=== PATIENT | female | born 1970 | race Caucasian/White ===

== ENCOUNTER → 2017-09-06 | Outpatient (CLI) | payer BC ==
--- NOTE | 2017-09-06 18:44 | Diagnostic Imaging Report ---
INDICATION: Routine screening. COMPARISON: Comparison is made with prior exam from 07/13/2016 and 05/27/2015. The current study was also evaluated with a Computer Aided Detection (CAD) system. FINDINGS: Well-defined nodular densities are identified in the right breast, which appear stable, most consistent with tiny cysts. No new mass or malignant appearing microcalcifications are seen. The axillae are unremarkable. IMPRESSION: No mammographic features suspicious for malignancy are identified. ACR BI-RADS Category 2: Benign findings. Result letter will be mailed to the patient. Note: At least 10% of breast cancer is not imaged by mammography. Dictated by: Dictated on workstation # [id number]
== END ==
LOC: RAD 13:00
PROVIDERS: ATTEND Nurse Practitioner
DX: Z12.31 Encounter for screening mammogram for malignant neoplasm of breast (principal)
CPT/HCPCS: 77067

== ENCOUNTER → 2018-12-23 | Outpatient (CLI) | payer BC ==
--- NOTE | 2018-12-23 13:15 | Diagnostic Imaging Report ---
Indication: Routine screening. Comparison is made with prior mammogram from 09/06/2017 and 07/13/2016. 2-D and 3-D bilateral screening mammography was performed with CAD. Scattered fibroglandular densities are identified bilaterally. Circumscribed nodular densities in the right breast appear stable and consistent with a benign etiology. No spiculated mass or malignant-appearing microcalcifications are seen. Axillae are unremarkable. Impression: BI-RADS category 2 No mammographic features suspicious for malignancy are identified. ACR BI-RADS Category 2: Benign findings. Result letter will be mailed to the patient. Note: At least 10% of breast cancer is not imaged by mammography. Dictated by: Dictated on workstation # [id number]
== END ==
LOC: RAD 10:50
PROVIDERS: ATTEND Nurse Practitioner
DX: Z12.31 Encounter for screening mammogram for malignant neoplasm of breast (principal)
CPT/HCPCS: 77067

== ENCOUNTER 2019-10-30 13:44 | Observation (INO) | payer BC ==
[~2019-10-30] VITALS: Ht 165.5 cm; Wt 97.6 kg
[2019-10-30] MEDS ORDERED: PATIENT MAY USE OWN MEDS, ALL PO SCH (14:15)
[2019-10-30] MEDS ORDERED: PANTOPRAZOLE 40 MG (PROTONIX) VIAL IV NR (14:15)
[2019-10-30] MEDS ORDERED: CATHETER FLUSH 10 ML SYR IV PRN (14:45)
[2019-10-30 15:09] VITALS: BP 177/99
[2019-10-30 15:21] VITALS: BP 177/99
--- NOTE | 2019-10-30 15:30 | NUR ---
FAYE GALLO admitted to room 430-1, with an admitting diagnosis of ABDOMINAL PAIN; MARLON on 10/30/[address] ELISE'S OFFICE, accompanied by .FAYE GALLO introduced to surroundings, call light, bed controls, phone, TV, temperature control, lights, meal times, smoking policy, visitor policy, side rail policy, bathrooms and showers. Patient Rights given to patient in the handbook. FAYE GALLO verbalizes understanding that [facility] is not responsible for the loss or damage to any personal effects or valuables that are kept in the patients posession during their hospitalization. The following Patient Care Plans were discussed with the PATIENT: Discharge Planning, PLAN OF CARE,DIET RESTRICTIONS, and PAIN. FAYE GALLO verbalizes understanding of Interdisciplinary Patient Education.
[2019-10-30 15:41] LABS: BASOPHILS % (AUTO) 0 % (0-10); EOSINOPHILS % (AUTO) 0 % (0-10); HEMATOCRIT 37 % (35-52); HEMOGLOBIN 11.6 G/DL (11.5-16.0); LYMPHOCYTES # (AUTO) 1.1 X 10^3 (1.0-4.0); LYMPHOCYTES % (AUTO) 9 % (12-44); MEAN CORPUSCULAR HEMOGLOBIN 22 PG (25-34); MEAN CORPUSCULAR HGB CONC 32 G/DL (32-36); MEAN CORPUSCULAR VOLUME 69 FL (80-99); MEAN PLATELET VOLUME 11.5 FL (7.4-10.4); MONOCYTES # (AUTO) 0.5 X 10^3 (0.0-1.0); MONOCYTES % (AUTO) 4 % (0-12); NEUTROPHILS # (AUTO) 10.4 X 10^3 (1.8-7.8); NEUTROPHILS % (AUTO) 86 % (42-75); PLATELET COUNT 325 10^3/uL (130-400); RED CELL DISTRIBUTION WIDTH 16.5 % (10.0-14.5)
[2019-10-30] MEDS: NS IV 1000 ML 1,000 ML IV SCH (15:53)
[2019-10-30] MEDS: fentaNYL INJECTION 100 MCG/2 ML AMP IV PRN ×4 (15:54→23:24)
[2019-10-30 16:04] LABS: ALANINE AMINOTRANSFERASE 14 U/L (0-55); ALBUMIN 4.3 GM/DL (3.2-4.5); ALKALINE PHOSPHATASE 49 U/L (40-136); AMYLASE 58 U/L (25-125); BILIRUBIN,TOTAL 0.4 MG/DL (0.1-1.0); BUN/CREATININE RATIO 11; CARBON DIOXIDE 21 MMOL/L (21-32); CHLORIDE 102 MMOL/L (98-107); GFR ESTIMATED > 60; GLUCOSE 111 MG/DL (70-105); LIPASE 15 U/L (8-78); POTASSIUM 3.7 MMOL/L (3.6-5.0); SODIUM 135 MMOL/L (135-145); TOTAL PROTEIN 7.6 GM/DL (6.4-8.2)
[2019-10-30 16:14] VITALS: BP 170/114
[2019-10-30 17:00] LABS: HYPOCHROMASIA SLIGHT; LYMPHOCYTES % (MANUAL) 11 %; MICROCYTOSIS SLIGHT; MONOCYTES % (MANUAL) 1 %; NEUTROPHILS % (MANUAL) 88 %
--- NOTE | 2019-10-30 17:22 | Diagnostic Imaging Report ---
PROCEDURE: US gallbladder. TECHNIQUE: Multiple real-time grayscale images were obtained over the right upper quadrant in various projections. INDICATION: Right upper quadrant pain. FINDINGS: The liver is normal. There is cholelithiasis with some sludge in the dependent portion of the gallbladder as well. Wall is not thickened. Common bile duct is obscured by bowel gas but no intrahepatic biliary ductal dilatation is seen. Pancreas is obscured by gas as is the aorta. The IVC is patent. The right kidney is normal. There is no ascites. IMPRESSION: Examination is somewhat limited due to overlying gas. There is cholelithiasis. No acute abnormality is seen. Dictated by: Dictated on workstation # [id number]
[2019-10-30] MEDS ORDERED: AMIT25TA9 PO (17:23)
[2019-10-30] MEDS ORDERED: FAMO40TA6 PO (17:27)
[2019-10-30] MEDS ORDERED: NORG1TAB16 PO (17:27)
[2019-10-30 17:28] VITALS: BP 185/92
[2019-10-30] MEDS ORDERED: HYDR25TA4 PO (17:36)
[2019-10-30] MEDS ORDERED: LOTE5DRO3 OP (17:36)
[2019-10-30] MEDS ORDERED: LEVO100T7 PO (17:36)
[2019-10-30] MEDS ORDERED: FLUT9.9S NS (17:36)
[2019-10-30] MEDS ORDERED: amLODIPine 5 MG (NORVASC) TAB PO NR (17:45)
[2019-10-30] MEDS: SUCRALFATE 1 GM (CARAFATE) TAB PO SCH (18:12)
[2019-10-30] MEDS: ONDANSETRON 4 MG/2 ML (SDV) Z0FRAN IV PRN (18:14)
[2019-10-30] MEDS ORDERED: PATIENT MAY USE OWN MEDS, ALL MC SCH (19:30)
[2019-10-30 20:09] VITALS: BP 169/105
[2019-10-30] MEDS ORDERED: meTOproloL SUCCINATE 50 MG (TOPROL XL) TAB PO NR (20:15)
--- NOTE | 2019-10-30 20:23 | History & Physical ---
History of Present Illness History of Present Illness Reason for visit/HPI This is a 49 year old female who presented to my office with complaint of epigastric pain radiating through to her back. She had associated nausea and vomiting and was pacing in my office due to discomfort. She reports tarry looking stools recently. She has been using more advil recently due to some neck pain. She also states she has had episodes before which she felt may be gallbladder related but they were not as severe and went away quickly. It was decided to admit her for pain control and further evaluation. Date of Admission Oct 30, 2019 at 14:27 Date Seen by a Provider: Oct 30, 2019 Time Seen by a Provider: 13:30 I consulted on this patient on 10/30/19 20:17 Attending Physician Hilary Elise DO Admitting Physician Hilary Elise DO Consult Allergies and Home Medications Allergies Coded Allergies: No Known Drug Allergies (Unverified , 10/30/19) Home Medications Amitriptyline HCl 25 Mg Tablet, 25 MG PO DAILY Prescribed by: RYAN ESCAMILLA on 10/30/19 172 Famotidine 40 Mg Tablet, 40 MG PO DAILY Prescribed by: RYNA ESCAMILLA on 10/30/19 172 Fluticasone Propionate 9.9 Ml [place].susp, 1 SPRAY NS DAILY PRN PRN for ITCHING 1 SPRAY EACH NARE DAILY Prescribed by: RYAN ESCAMILLA on 10/30/19 173 Hydrochlorothiazide 25 Mg Tablet, 25 MG PO DAILY Prescribed by: RYAN ESCAMILLA on 10/30/19 173 Levothyroxine Sodium 100 Mcg Tablet, 100 MCG PO DAILY Prescribed by: RYAN ESCAMILLA on 10/30/19 173 Loteprednol Etabonate 5 Ml Drops.susp, 5 ML OP DAILY Prescribed by: RYAN ESCAMILLA on 10/30/19 173 Norgestrel-Ethinyl Estradiol 1 Each Tablet, 1 EACH PO DAILY Prescribed by: RYAN ESCAMILLA on 10/30/19 172 Patient Home Medication List Home Medication List Reviewed: Yes Past Wehnamr-Ossowr-Viorlx Hx Past Med/Social Hx: Reviewed Nursing Past Med/Soc Hx Patient Social History Marrital Status: Alcohol Use: Occasionally Uses Recreational Drug Use: No Smoking Status: Never a Smoker Physical Abuse Screen: No Sexual Abuse: No Recent Foreign Travel: Yes Contact w/other who traveled: Yes Recent Hopitalizations: No Recent Infectious Disease Expo: No Immunizations Up To Date Pediatric: Yes Seasonal Allergies Seasonal Allergies: Yes Past Medical History History of Blood Disorders: No Adverse Reaction to Blood Olivas: No Family History Arthritis 19 MOTHER Breast 19 MOTHER FH: breast cancer High cholestr 19 MOTHER Hypertension 19 FATHER Verigo 19 MOTHER Review of Systems Constitutional: No no symptoms reported, No see HPI, No chills, No diaphoresis, No dizziness, No fever, No malaise, No weakness, No weight gain, No weight loss, No other EENTM: No see HPI, No no symptoms reported, No ear discharge, No hearing loss, No ear pain, No blurred vision, No double vision, No eye pain, No tearing, No vision loss, No dental problems, No hoarseness, No mouth pain, No mouth swelling, No epistaxis, No nose congestion, No nose pain, No throat pain, No throat swelling, No other Respiratory: No no symptoms reported, No see HPI, No cough, No dyspnea on exertion, No hemoptysis, No orthopnea, No phlegm, No short of breath, No stridor, No wheezing, No other Cardiovascular: No no symptoms reported, No see HPI, No chest pain, No edema, No Hx of Intervention, No palpitations, No syncope, No vascular heart diseas, No other Gastrointestinal: abdominal pain, loss of appetite, melena, nausea, vomiting Genitourinary: No no symptoms reported, No see HPI, No decreased output, No discharge, No dysuria, No frequency, No hematuria, No hesitancy, No i ncontinence, No nocturia, No pain, No other Musculoskeletal: back pain, neck pain Skin: No no symptoms reported, No see HPI, No change in color, No change in hair/nails, No dryness, No hx of skin cancer, No lesions, No lumps, No pruritus, No rash, No other Psychiatric/Neurological: Denies No Symptoms Reported, Denies See HPI, Denies Anxiety, Denies Depressed, Denies Emotional Problems, Denies Headache, Denies Numbness, Denies Paresthesia, Denies Pre-Existing Deficit, Denies Seizure, Denies Tingling, Denies Tremors, Denies Weakness, Denies Other Physical Exam Vital Signs Vital Signs - First Documented 10/30/19 15:09 Temp 37.0 Pulse 89 Resp 18 B/P (MAP) 177/99 (125) Pulse Ox 97 O2 Delivery Room Air Capillary Refill : Less Than 3 Seconds Height, Weight, BMI Height: '" Weight: lbs. oz. kg; 35.63 BMI Method: General Appearance: Moderate Distress (due to pain) HEENT: Normal ENT Inspection Neck: Supple Respiratory: Lungs Clear Cardiovascular: Regular Rate, Rhythm Gastrointestinal: Normal Bowel Sounds, Soft, Tenderness (epigastric and RUQ) Rectal: Deferred Back: No CVA Tenderness Extremity: Non Tender, No Calf Tenderness, No Pedal Edema Neurologic/Psychiatric: Alert, Oriented x3 Skin: Warm/Dry Comments Laboratory Tests 10/30/19 15:34: White Blood Count 12.0H, Red Blood Count 5.32, Hemoglobin 11.6, Hematocrit 37, Mean Corpuscular Volume 69L, Mean Corpuscular Hemoglobin 22L, Mean Corpuscular Hemoglobin Concent 32, Red Cell Distribution Width 16.5H, Platelet Count 325, Mean Platelet Volume 11.5H, Neutrophils (%) (Auto) 86H, Lymphocytes (%) (Auto) 9L, Monocytes (%) (Auto) 4, Eosinophils (%) (Auto) 0, Basophils (%) (Auto) 0, Neutrophils # (Auto) 10.4H, Lymphocytes # (Auto) 1.1, Monocytes # (Auto) 0.5, Eosinophils # (Auto) 0.0, Basophils # (Auto) 0.0, Neutrophils % (Manual) 88, Lymphocytes % (Manual) 11, Monocytes % (Manual) 1, Hypochromasia SLIGHT, Microcytosis SLIGHT, Sodium Level 135, Potassium Level 3.7, Chloride Level 102, Carbon Dioxide Level 21, Anion Gap 12, Blood Urea Nitrogen 9, Creatinine 0.80, Estimat Glomerular Filtration Rate > 60, BUN/Creatinine Ratio 11, Glucose Level 111H, Calcium Level 9.0, Corrected Calcium 8.8, Total Bilirubin 0.4, Aspartate Amino Transf (AST/SGOT) 18, Alanine Aminotransferase (ALT/SGPT) 14, Alkaline Phosphatase 49, Total Protein 7.6, Albumin 4.3, Amylase Level 58, Lipase 15 Assessment/Plan Assessment and Plan 1. Epigastric Pain/RUQ Pain--Admit and check lab including CMP, amylase, lipase, check GB US, cover with IV protonix 2. Possible melena--check hemoccult, possible ulcer with presentation and recent increased use of NSAIDs, will consult surgery for possible EGD 3. Hypertension--amlodopine given on admit Admission Diagnosis Admission Status: Observation Clinical Quality Measures DVT/VTE Risk/Contraindication: Risk Factor Score Per Nursin RFS Level Per Nursing on Admit: 2=Moderate HILARY ELISE DO Oct 30, 2019 20:23
[2019-10-30] MEDS: AMITRIPTYLINE 25 MG (ELAVIL) TAB PO SCH (20:28)
[2019-10-30] MEDS: PANTOPRAZOLE 40 MG (PROTONIX) VIAL IV SCH (21:23)
[2019-10-30 23:52] VITALS: BP 185/100
[2019-10-31] VITALS (8 sets, daily range): BP systolic 122–168; BP diastolic 60–97
[2019-10-31] MEDS: NS IV 1000 ML 1,000 ML IV SCH ×3 (00:42→22:04)
[2019-10-31] MEDS: fentaNYL INJECTION 100 MCG/2 ML AMP IV PRN ×9 (01:30→22:05)
[2019-10-31] MEDS ORDERED: cloNIDine 0.1 MG (CATAPRES) TAB PO ONE (02:45)
[2019-10-31] MEDS: ONDANSETRON 4 MG/2 ML (SDV) Z0FRAN IV PRN ×4 (04:01→22:04)
[2019-10-31 04:30] LABS: BASOPHILS % (AUTO) 0 % (0-10); EOSINOPHILS # (AUTO) 0.1 10^3/uL (0.0-0.3); EOSINOPHILS % (AUTO) 1 % (0-10); HEMATOCRIT 35 % (35-52); HEMOGLOBIN 11.1 G/DL (11.5-16.0); LYMPHOCYTES # (AUTO) 1.5 X 10^3 (1.0-4.0); LYMPHOCYTES % (AUTO) 14 % (12-44); MEAN CORPUSCULAR HEMOGLOBIN 22 PG (25-34); MEAN CORPUSCULAR HGB CONC 32 G/DL (32-36); MEAN CORPUSCULAR VOLUME 69 FL (80-99); MEAN PLATELET VOLUME 11.7 FL (7.4-10.4); MONOCYTES % (AUTO) 9 % (0-12); NEUTROPHILS # (AUTO) 8.2 X 10^3 (1.8-7.8); NEUTROPHILS % (AUTO) 76 % (42-75); PLATELET COUNT 325 10^3/uL (130-400); RED CELL DISTRIBUTION WIDTH 16.6 % (10.0-14.5); WHITE BLOOD COUNT 10.8 10^3/uL (4.3-11.0)
--- NOTE | 2019-10-31 05:00 | NUR ---
2006 - Notified Dr. Lieberman that pt blood pressure was 169/105mmhg. Received orders for Metoprolol ER 50mg PO once and monitor. 2351 - Pt blood pressure was 185/100mmhg. Pt was also in severe pain and was pacing in the room. Informed pt that RN just gave her Fentanyl 30 mins prior. 013 - Pt was complaining of pain, gave Fentanyl per prn order. 199 - Rechecked blood pressure = 178/105mmhg 204 - Left voicemail for Dr. Lieberman about pt blood pressure 227 - Called Dr. Lieberman again, received order for Clonidine 0.1mg PO once and monitor 0435 - Pt blood pressure = 145/85mmhg.
[2019-10-31] MEDS: LEVOTHYROXINE 100 MCG (LEVOTHROID) TAB PO SCH (06:36)
[2019-10-31] MEDS: SUCRALFATE 1 GM (CARAFATE) TAB PO SCH ×3 (06:37→20:53)
[2019-10-31] MEDS: PANTOPRAZOLE 40 MG (PROTONIX) VIAL IV SCH ×2 (08:04→20:53)
--- NOTE | 2019-10-31 08:47 | Consultation - Surgery ---
History of Present Illness History of Present Illness Patient Consulted On(gladys/time) 10/31/19 08:47 Date Seen by Provider: Oct 31, 2019 Time Seen by Provider: 08:47 History of Present Illness Consult requested by Dr. Lieberman for epigastric abdominal pain and cholelithiasis Patient is a 49 year old female who was woken up from sleep about 1:30 am yesterday morning. Having sharp pain in epigastric region and pain into the back. Patient states that she is also having nausea and vomiting. Trying to eat or drink anything would come up making it worse. Patient states nothing really making it better. Has had episodes in the past of GERD, but has usually been under control with Pepcid. She has had recent tarry black stools. She had episodes previously that she thought was her gallbladder, but was only lasting less than an hr. She had a ultrasound of gallbladder demonstrating cholelithiasis without gallbladder wall thickening. Allergies and Home Medications Allergies Coded Allergies: No Known Drug Allergies (Unverified , 10/30/19) Home Medications Amitriptyline HCl 25 Mg Tablet, 25 MG PO DAILY Prescribed by: RYAN ESCAMILLA on 10/30/19 172 Famotidine 40 Mg Tablet, 40 MG PO DAILY Prescribed by: RYAN ESCAMILLA on 10/30/19 172 Fluticasone Propionate 9.9 Ml [place].susp, 1 SPRAY NS DAILY PRN PRN for ITCHING 1 SPRAY EACH NARE DAILY Prescribed by: RYAN ESCAMILLA on 10/30/19 173 Hydrochlorothiazide 25 Mg Tablet, 25 MG PO DAILY Prescribed by: RYAN ESCAMILLA on 10/30/19 173 Levothyroxine Sodium 100 Mcg Tablet, 100 MCG PO DAILY Prescribed by: RYAN ESCAMILLA on 10/30/19 173 Loteprednol Etabonate 5 Ml Drops.susp, 5 ML OP DAILY Prescribed by: RYAN ESCAMILLA on 10/30/19 173 Norgestrel-Ethinyl Estradiol 1 Each Tablet, 1 EACH PO DAILY Prescribed by: RYAN ESCAMILLA on 10/30/19 172 Patient Home Medication List Home Medication List Reviewed: Yes Past Hyzjjoq-Dgiukz-Wbbqih Hx Patient Social History Alcohol Use: Occasionally Uses Recreational Drug Use: No Smoking Status: Never a Smoker Recent Foreign Travel: Yes Contact w/Someone Who Travel: Yes Recent Infectious Disease Expo: No Recent Hopitalizations: No Physical Abuse Screen: No Sexual Abuse: No Immunizations Up To Date PED Vaccines UTD: Yes Seasonal Allergies Seasonal Allergies: Yes Surgeries History of Surgeries: No Respiratory History of Respiratory Disorde: No Cardiovascular History of Cardiac Disorders: No Neurological History of Neurological Disord: No Genitourinary History of Genitourinary Disor: No Gastrointestinal History of Gastrointestinal Di: No Musculoskeletal History of Musculoskeletal Dis: No Endocrine History of Endocrine Disorders: Yes Cancer History of Cancer: No Psychosocial History of Psychiatric Problem: No Integumentary History of Skin or Integumenta: Yes Blood Transfusions History of Blood Disorders: No Adverse Reaction to a Blood Tr: No Reviewed Nursing Assessment Reviewed/Agree w Nursing PMH: Yes Family Medical History Significant Family History: No Pertinent Family Hx Family Medial History: Arthritis 19 MOTHER Breast 19 MOTHER FH: breast cancer High cholestr 19 MOTHER Hypertension 19 FATHER Verigo 19 MOTHER Review of Systems-General Constitutional: No chills, No diaphoresis EENTM: no symptoms reported Respiratory: no symptoms reported; No cough, No dyspnea on exertion Cardiovascular: no symptoms reported; No chest pain Gastrointestinal: see HPI, abdominal pain, nausea, vomiting Musculoskeletal: back pain Skin: No change in color, No change in hair/nails Psychiatric/Neurological: Denies Anxiety, Denies Depressed, Denies Emotional Problems Physical Exam-General Problems Physical Exam Vital Signs Vital Signs - First Documented 10/30/19 15:09 Temp 37.0 Pulse 89 Resp 18 B/P (MAP) 177/99 (125) Pulse Ox 97 O2 Delivery Room Air Capillary Refill : Less Than 3 SecondsLess Than 3 Seconds General Appearance: no apparent distress HEENT: PERRL/EOMI Neck: non-tender, full range of motion, supple, normal inspection Respiratory: chest non-tender, no respiratory distress, no accessory muscle use Cardiovascular: regular rate, rhythm Gastrointestinal: soft, tenderness (epigastric) Rectal: deferred Back: no CVA tenderness Extremities: normal range of motion, non-tender, normal inspection Neurologic/Psychiatric: wide load escort II-XII nml as tested, no motor/sensory deficits, alert, normal mood/affect, oriented x 3 Skin: normal color, warm/dry Lymphatic: no adenopathy Data Review Labs Laboratory Tests 10/30/19 15:34: White Blood Count 12.0H, Red Blood Count 5.32, Hemoglobin 11.6, Hematocrit 37, Mean Corpuscular Volume 69L, Mean Corpuscular Hemoglobin 22L, Mean Corpuscular Hemoglobin Concent 32, Red Cell Distribution Width 16.5H, Platelet Count 325, Mean Platelet Volume 11.5H, Neutrophils (%) (Auto) 86H, Lymphocytes (%) (Auto) 9L, Monocytes (%) (Auto) 4, Eosinophils (%) (Auto) 0, Basophils (%) (Auto) 0, Neutrophils # (Auto) 10.4H, Lymphocytes # (Auto) 1.1, Monocytes # (Auto) 0.5, Eosinophils # (Auto) 0.0, Basophils # (Auto) 0.0, Neutrophils % (Manual) 88, Lymphocytes % (Manual) 11, Monocytes % (Manual) 1, Hypochromasia SLIGHT, Microcytosis SLIGHT, Sodium Level 135, Potassium Level 3.7, Chloride Level 102, Carbon Dioxide Level 21, Anion Gap 12, Blood Urea Nitrogen 9, Creatinine 0.80, Estimat Glomerular Filtration Rate > 60, BUN/Creatinine Ratio 11, Glucose Level 111H, Calcium Level 9.0, Corrected Calcium 8.8, Total Bilirubin 0.4, Aspartate Amino Transf (AST/SGOT) 18, Alanine Aminotransferase (ALT/SGPT) 14, Alkaline Phosphatase 49, Total Protein 7.6, Albumin 4.3, Amylase Level 58, Lipase 15 10/31/19 04:20: White Blood Count 10.8, Red Blood Count 5.09, Hemoglobin 11.1L, Hematocrit 35, Mean Corpuscular Volume 69L, Mean Corpuscular Hemoglobin 22L, Mean Corpuscular Hemoglobin Concent 32, Red Cell Distribution Width 16.6H, Platelet Count 325, Mean Platelet Volume 11.7H, Neutrophils (%) (Auto) 76H, Lymphocytes (%) (Auto) 14, Monocytes (%) (Auto) 9, Eosinophils (%) (Auto) 1, Basophils (%) (Auto) 0, Neutrophils # (Auto) 8.2H, Lymphocytes # (Auto) 1.5, Monocytes # (Auto) 1.0, Eosinophils # (Auto) 0.1, Basophils # (Auto) 0.0 Assessment/Plan Assessment/Plan Assessment/Plan Epigastric abdominal pain Cholelithiasis Tarry stools Nausea and vomiting Patient was discussed risks and benefits of EGD all indicated procedures and wishes to proceed. Patient with cholelithiasis no evidence of cholecystitis, if feel gallbladder is symptomatic would try to postpone due to COVID-19 pandemic, if unable to wait due to symptoms being too bad would discuss risks and benefits and proceed with lap josias in near future. Clinical Quality Measures DVT/VTE Risk/Contraindication: Risk Factor Score Per Nursin RFS Level Per Nursing on Admit: 2=Moderate DAVIDA ARRIOLA DO Oct 31, 2019 08:47
[2019-10-31] MEDS ORDERED: NORGESTREL ETHINYL ESTRADIOL PO SCH (09:00)
[2019-10-31] MEDS ORDERED: AMITRIPTYLINE 25 MG (ELAVIL) TAB PO SCH (09:00)
--- NOTE | 2019-10-31 11:46 | Progress Note ---
Subjective Date Seen by a Provider: Oct 31, 2019 Time Seen by a Provider: 11:20 Subjective/Events-last exam Fwup epigastric pain, HTN. Still having epigastric pain requiring fentanyl every 2hrs. Objective Exam Vital Signs Date Time Temp Pulse Resp B/P (MAP) Pulse Ox O2 Delivery O2 Flow Rate FiO2 10/31/19 08:00 37.1 73 20 168/97 (120) 99 Room Air 10/31/19 08:00 97 Room Air 10/31/19 04:35 36.8 76 18 145/85 (105) 97 Room Air 10/30/19 23:52 37.3 76 18 185/100 (128) 97 Room Air 10/30/19 20:09 37.3 84 20 169/105 (126) 97 Room Air 10/30/19 20:00 Room Air 10/30/19 17:28 185/92 (123) 10/30/19 16:14 36.8 78 18 170/114 (132) 98 Room Air 10/30/19 15:21 37.0 89 18 177/99 97 Room Air 10/30/19 15:09 37.0 89 18 177/99 (125) 97 Room Air Capillary Refill : Less Than 3 SecondsLess Than 3 Seconds General Appearance: Mild Distress Respiratory: Lungs Clear Cardiovascular: Regular Rate, Rhythm Gastrointestinal: normal bowel sounds, soft, tenderness (epigastric) Neurologic/Psychiatric: Alert, Oriented x3 Results Lab Laboratory Tests 10/30/19 15:34: White Blood Count 12.0H, Red Blood Count 5.32, Hemoglobin 11.6, Hematocrit 37, Mean Corpuscular Volume 69L, Mean Corpuscular Hemoglobin 22L, Mean Corpuscular Hemoglobin Concent 32, Red Cell Distribution Width 16.5H, Platelet Count 325, Mean Platelet Volume 11.5H, Neutrophils (%) (Auto) 86H, Lymphocytes (%) (Auto) 9L, Monocytes (%) (Auto) 4, Eosinophils (%) (Auto) 0, Basophils (%) (Auto) 0, Neutrophils # (Auto) 10.4H, Lymphocytes # (Auto) 1.1, Monocytes # (Auto) 0.5, Eosinophils # (Auto) 0.0, Basophils # (Auto) 0.0, Neutrophils % (Manual) 88, Lymphocytes % (Manual) 11, Monocytes % (Manual) 1, Hypochromasia SLIGHT, Microcytosis SLIGHT, Sodium Level 135, Potassium Level 3.7, Chloride Level 102, Carbon Dioxide Level 21, Anion Gap 12, Blood Urea Nitrogen 9, Creatinine 0.80, Estimat Glomerular Filtration Rate > 60, BUN/Creatinine Ratio 11, Glucose Level 111H, Calcium Level 9.0, Corrected Calcium 8.8, Total Bilirubin 0.4, Aspartate Amino Transf (AST/SGOT) 18, Alanine Aminotransferase (ALT/SGPT) 14, Alkaline Phosphatase 49, Total Protein 7.6, Albumin 4.3, Amylase Level 58, Lipase 15 10/31/19 04:20: White Blood Count 10.8, Red Blood Count 5.09, Hemoglobin 11.1L, Hematocrit 35, Mean Corpuscular Volume 69L, Mean Corpuscular Hemoglobin 22L, Mean Corpuscular Hemoglobin Concent 32, Red Cell Distribution Width 16.6H, Platelet Count 325, Mean Platelet Volume 11.7H, Neutrophils (%) (Auto) 76H, Lymphocytes (%) (Auto) 14, Monocytes (%) (Auto) 9, Eosinophils (%) (Auto) 1, Basophils (%) (Auto) 0, Neutrophils # (Auto) 8.2H, Lymphocytes # (Auto) 1.5, Monocytes # (Auto) 1.0, Eosinophils # (Auto) 0.1, Basophils # (Auto) 0.0 Assessment/Plan Assessment/Plan Assess & Plan/Chief Complaint 1. Epigastric Pain--suspect ulcer--NPO and on IV protonix--EGD today by Dr. Altamirano 2. Hypertension--better after clonidine last night 3. Cholelithiasis--no evidence of inflammation so discussed will likely have to put off cholecystectomy due to nonurgent surgery at this point with COVID-19 pandemic Clinical Quality Measures Admission Status Admission Dx 1. Epigastric Pain/RUQ Pain--Admit and check lab including CMP, amylase, lipase, check GB US, cover with IV protonix 2. Possible melena--check hemoccult, possible ulcer with presentation and recent increased use of NSAIDs, will consult surgery for possible EGD 3. Hypertension--amlodopine given on admit DVT/VTE Risk/Contraindication: Risk Factor Score Per Nursin RFS Level Per Nursing on Admit: 2=Moderate BULL ELISE DO Oct 31, 2019 11:46
[2019-10-31] MEDS ORDERED: LACTATED RINGERS 1,000 ML IV ONE (12:19)
[2019-10-31] MEDS ORDERED: proPOfol 200 MG/20 ML (DIPRIVAN) VIAL IV ONE (12:24)
[2019-10-31] MEDS: LACTATED RINGERS 1,000 ML IV SCH (12:30)
[2019-10-31] MEDS ORDERED: MIDAZOLAM 2 MG/2 ML (VERSED) VIAL ONE (12:58)
--- NOTE | 2019-10-31 13:31 | Progress Note-Post Operative ---
Post-Operative Progess Note Surgeon (s)/Journeyman Pipefitter (s) Surgeon DAVIDA ARRIOLA DO Journeyman Pipefitter: na Pre-Operative Diagnosis epigastric abd pain , n/v Post-Operative Diagnosis gastritis Procedure & Operative Findings Date of Procedure 10/31/19 Procedure Performed/Findings egd c biopsies Anesthesia Type per [facility] Estimated Blood Loss Estimated blood loss (mL): none Specimens/Packing Specimens Removed antrum, body, ge Packing: dictation #[id number] DAVIDA ARRIOLA DO Oct 31, 2019 13:31
--- NOTE | 2019-10-31 14:02 | Anesthesia-General Post-Op ---
MAC Patient Condition Mental Status/LOC: Same as Preop Cardiovascular: Satisfactory Nausea/Vomiting: Absent Respiratory: Satisfactory Pain: Controlled Complications: Absent Post Op Complications Complications None Follow Up Care/Instructions Patient Instructions None needed. Anesthesiology Discharge Order Discharge Order Patient is doing well, no complaints, stable vital signs, no apparent adverse anesthesia problems. PARMJIT LAMB DO Oct 31, 2019 14:02
[2019-10-31] MEDS ORDERED: cloNIDine 0.1 MG (CATAPRES) TAB PO NR (14:30)
[2019-10-31] MEDS ORDERED: amLODIPine 5 MG (NORVASC) TAB PO NR (17:15)
[2019-10-31] MEDS: AMITRIPTYLINE 25 MG (ELAVIL) TAB PO SCH (22:04)
[2019-10-31] MEDS: ACETAMINOPHEN 500 MG TAB (TYLENOL) PO PRN (22:08)
--- NOTE | 2019-10-31 22:09 | OPERATIVE REPORT ---
DATE OF SERVICE: 10/31/2019 PREOPERATIVE DIAGNOSES: Epigastric abdominal pain, nausea and vomiting. POSTOPERATIVE DIAGNOSIS: Gastritis. PROCEDURE: EGD with biopsies. SURGEON: Davida Altamirano DO ANESTHESIA: Per MDA. ESTIMATED BLOOD LOSS: None. COMPLICATIONS: None. INDICATIONS: The patient is a 49-year-old female with epigastric abdominal pain, nausea and vomiting. She understands risks and benefits of procedure and wished to proceed with procedure. Consent was signed in the chart. DESCRIPTION OF PROCEDURE: The patient was taken to the endoscopy suite, placed in left lateral recumbent position. Timeout was performed. Scope was inserted in mouth, down the esophagus, stomach and into the duodenum without difficulty. There were no polyps, masses or ulcerations within the duodenum. Scope was then slowly retracted back to the stomach where it was further insufflated. Biopsy of the antrum was obtained. There were no polyps, masses or ulcerations within the antrum, erythematous changes were slight, in the body more significant erythematous changes. Biopsy of this area was obtained. Scope was retroflexed further and did not notice any hiatal hernia or any other pathology. Scope was returned to its normal position, slowly withdrawn to the distal esophagus. There are no polyps, masses or ulcerations. Biopsy of the GE junction was obtained. Scope was then slowly retracted back to completely remove noting no other pathology. The patient tolerated procedure well without any complications. She was taken to recovery room in stable condition. RECOMMENDATIONS: The patient will be started on Carafate 1 gram four times a day. We will continue on Protonix and see how her symptoms are doing, if overall symptoms do not improve and the patient by ultrasound had cholelithiasis without evidence of cholecystitis, her symptoms could be from this as well, so if no improvement in the short term, we will consider cholecystectomy. Job ID: [id number] DocumentID: [id number] Dictated Date: 10/31/2019 13:30:49 Computer Equipment Installer Date: 10/31/2019 22:08:01 Dictated By: DAVIDA ALTAMIRANO DO
[2019-11-01 00:03] VITALS: BP 134/75
[2019-11-01] MEDS: LACTATED RINGERS 1,000 ML IV SCH (00:08)
[2019-11-01] MEDS: NS IV 1000 ML 1,000 ML IV SCH ×2 (00:16→05:46)
[2019-11-01] MEDS: fentaNYL INJECTION 100 MCG/2 ML AMP IV PRN ×2 (02:43→05:45)
[2019-11-01 03:55] VITALS: BP 131/73
[2019-11-01] MEDS: LEVOTHYROXINE 100 MCG (LEVOTHROID) TAB PO SCH (05:44)
[2019-11-01] MEDS: SUCRALFATE 1 GM (CARAFATE) TAB PO SCH ×2 (05:45→10:57)
[2019-11-01] MEDS: ONDANSETRON 4 MG/2 ML (SDV) Z0FRAN IV PRN (05:48)
[2019-11-01 07:41] VITALS: BP 130/77
[2019-11-01] MEDS: PANTOPRAZOLE 40 MG (PROTONIX) VIAL IV SCH (08:48)
[2019-11-01] MEDS ORDERED: amLODIPine 5 MG (NORVASC) TAB PO SCH (09:00)
[2019-11-01] MEDS: ACETAMINOPHEN 500 MG TAB (TYLENOL) PO PRN (09:00)
--- NOTE | 2019-11-01 09:15 | NUR ---
FAYE GALLO demonstrates understanding of discharge instructions and accurately returns instructions upon questioning. Copy of Post-Discharge Instructions given to PT. FAYE GALLO is able to manage continuing needs after discharge. Patients belongings returned to PT. Patient discharged from [facility] on 11/01/19 at 11:15. FAYE GALLO left floor via W/C, accompanied by STAFF AND PER AUTO.
--- NOTE | 2019-11-01 09:53 | Progress Note ---
Subjective Subjective Date Seen by Provider: Nov 01, 2019 Time Seen by Provider: 09:49 No overnight events. Still requiring iv fentanyl q3-4hours. Patient reports she is ready to go home and the last dose of fentanyl she doesn't think she probably needed- looking back on it- it was because she had a headache and some nausea. She thinks tylenol will be enough when she goes home. EGD yesterday showed gastritis. started on protonix and carafate. The carafate has helped. Review of Systems General: No Chills, No Night Sweats HEENT: No Head Aches Pulmonary: No Cough Cardiovascular: No: Chest Pain, Palpitations Gastrointestinal: Nausea, Abdominal Pain (epigastric) Genitourinary: No Dysuria, No Frequency Musculoskeletal: No: shoulder pain Neurological: No: Weakness Objective Exam Vital Signs Vital Signs Date Time Temp Pulse Resp B/P (MAP) Pulse Ox O2 Delivery O2 Flow Rate FiO2 11/01/19 07:41 37.2 80 18 130/77 (94) 96 Room Air 11/01/19 03:55 36.5 81 20 131/73 (92) 99 Room Air 11/01/19 00:03 36.6 82 15 134/75 (94) 96 Room Air 10/31/19 20:00 Room Air 10/31/19 19:21 36.4 92 17 142/80 (100) 96 Room Air 10/31/19 16:55 37.0 88 15 168/84 (112) 97 Room Air 10/31/19 13:30 76 18 100 Room Air 10/31/19 13:25 80 18 100 OxyMask 4 10/31/19 13:20 87 18 99 OxyMask 6 10/31/19 12:11 36.8 76 20 161/97 (118) 96 Room Air I & O 11/01/19 07:00 Intake Total 3670 ml Balance 3670 ml General Appearance: No Apparent Distress; No Mild Distress HEENT: Normal ENT Inspection Neck: Supple Respiratory: Lungs Clear Cardiovascular: Regular Rate, Rhythm Gastrointestinal: Normal Bowel Sounds, Soft, Tenderness (epigastric and RUQ) Rectal: Deferred Back: No CVA Tenderness Extremity: Non Tender, No Calf Tenderness, No Pedal Edema Neurologic/Psychiatric: Alert, Oriented x3 Skin: Warm/Dry Results Lab Microbiology 10/31/19 MRSA Screen - Final, Complete MRSA not isolated Assessment/Plan Assessment/Plan Assessment and Plan -working on pain control- she will need to be po pain medications prior to her going home. Discussed with patient- she will use apap for her pains; avoiding NSAIDs. Since the carafate worked well last night- she is feeling much better. Problems: (1) Epigastric pain Assessment & Plan: intractable- which was the reason for admission. (2) Gastritis Qualifiers: Assessment & Plan: EGD 10/31/19 (3) HTN (hypertension) Qualifiers: Qualified Codes: I10 - Essential (primary) hypertension Assessment & Plan: elevated blood pressure- likely worsened by her pain. -much improved compared to admission. (4) Hypothyroidism, unspecified Qualifiers: Qualified Codes: E03.9 - Hypothyroidism, unspecified Assessment & Plan: continue levothyroxine (5) Cholelithiasis Clinical Quality Measures DVT/VTE Risk/Contraindication: Risk Factor Score Per Nursin RFS Level Per Nursing on Admit: 2=Moderate MAIK BOWMAN MD Nov 01, 2019 09:53
[2019-11-01] MEDS ORDERED: AMLO5TAB9 PO (10:13)
[2019-11-01] MEDS ORDERED: ONDA-105 PO (10:13)
[2019-11-01] MEDS ORDERED: HYDR-4226 PO (10:13)
[2019-11-01] MEDS ORDERED: SUCR1TAB PO (10:13)
[2019-11-01] MEDS ORDERED: PANT40TA3 PO (10:13)
--- NOTE | 2019-11-01 10:19 | Discharge Summary ---
Discharge Summary Hospital Course Was the Problem List Reviewed?: Yes Problems/Dx: (1) Epigastric pain Status: Acute (2) Gastritis Status: Acute Qualifiers: (3) HTN (hypertension) Status: Chronic Qualifiers: Qualified Codes: I10 - Essential (primary) hypertension (4) Hypothyroidism, unspecified Status: Chronic Qualifiers: Qualified Codes: E03.9 - Hypothyroidism, unspecified (5) Cholelithiasis Status: Chronic Hospital Course Date of Admission: Oct 30, 2019 at 14:27 Admission Diagnosis : Intractable epigastric pain Gastritis Hypothyroidism Cholelithiasis hypertension Family Physician/Provider: Hilary Lieberman DO Date of Discharge: 11/01/19 Discharge Diagnosis: Intractable epigastric pain Gastritis Hypothyroidism Cholelithiasis hypertension Hospital Course: This is a 49 year old female who presented to my office with complaint of epigastric pain radiating through to her back. She had associated nausea and vomiting and was pacing in my office due to discomfort. She reports tarry look ing stools recently. She has been using more advil recently due to some neck pain. She also states she has had episodes before which she felt may be gallbladder related but they were not as severe and went away quickly. It was decided to admit her for pain control and further evaluation. Protonix were started on patient. She underwent EGD on 10/31/19 demonstrating g astritis. Pain was being controlled on fentanyl IV. Carafate was then added and her abdominal pains improved. She was also noted to have gallstones without duct dilation or obstruction. So this will be an elective procedure in the future. Labs and Pending Lab Test: Microbiology 10/31/19 MRSA Screen - Final, Complete MRSA not isolated Home Meds Active Ondansetron HCl 4 Mg Tablet 4 Mg PO Q12H PRN Hydrocodone/Acetaminophen 5 MG/325 MG TAB (Hydrocodone/Acetaminophen) 1 Each Tablet 1 Tab PO Q12H PRN 7 Days Pantoprazole Sodium 40 Mg Tablet.dr 40 Mg PO DAILY Sucralfate 1 Gm Tablet 1 Gm PO ACHS Amlodipine Besylate 5 Mg Tablet 5 Mg PO DAILY 30 Days Flonase Allergy Relief (Fluticasone Propionate) 9.9 Ml Jupiter.susp 1 Jupiter NS DAILY PRN PRN 90 Days 1 SPRAY EACH NARE DAILY Alrex (Loteprednol Etabonate) 5 Ml Drops.susp 5 Ml OP DAILY 90 Days Levothyroxine Sodium 100 Mcg Tablet 100 Mcg PO DAILY 90 Days Hydrochlorothiazide 25 Mg Tablet 25 Mg PO DAILY 90 Days Cryselle-28 Tablet (Norgestrel-Ethinyl Estradiol) 1 Each Tablet 1 Each PO DAILY 28 Days Famotidine 40 Mg Tablet 40 Mg PO DAILY 90 Days Amitriptyline HCl 25 Mg Tablet 25 Mg PO DAILY 60 Days Assessment/Pt Instructions Follow up with Dr. Altamirano in 1-2 weeks- call office. Follow up with Dr. Lieberman in 1-2 weeks- call office. May be a telemedicine visit. Continue protonix and sucralfate for your gastritis. Avoid NSAIDs (ibuprofen, naproxen) You may take acetaminophen for pain - if pain is too severe you may use hydrocodone/apap but be aware constipation may occur. -Ambulate for exercise. Discharge Planning: <30 minutes discharge planning Discharge Instructions Discharge Diet: Regular Diet (start with a bland diet.), Avoid Fatty Foods Activity as Tolerated: Yes Pneumonia Vaccine Order Indica: Yes Discharge Physical Examination Vital Signs Vital Signs Date Time Temp Pulse Resp B/P (MAP) Pulse Ox O2 Delivery O2 Flow Rate FiO2 11/01/19 07:41 37.2 80 18 130/77 (94) 96 Room Air 10/31/19 13:25 4 General Appearance: No Apparent Distress HEENT: PERRL/EOMI Respiratory: Chest Non Tender, Lungs Clear, Normal Breath Sounds Cardiovascular: Regular Rate, Rhythm Gastrointestinal: Normal Bowel Sounds, Soft, Tenderness Skin: Warm/Dry Neurologic/Psychiatric: Alert, Oriented x3, No Motor/Sensory Deficits, Normal Mood/Affect Allergies: Coded Allergies: No Known Drug Allergies (Unverified , 10/30/19) Discharge Summary Date of Admission Oct 30, 2019 at 14:27 Date of Discharge October 31, 2019 Discharge Diagnosis (1) Epigastric pain Status: Acute Assessment & Plan: intractable- which was the reason for admission. (2) Gastritis Status: Acute Assessment & Plan: EGD 10/31/19 Qualifiers: (3) HTN (hypertension) Status: Chronic Assessment & Plan: elevated blood pressure- likely worsened by her pain. -much improved compared to admission. Qualifiers: Qualified Codes: I10 - Essential (primary) hypertension (4) Hypothyroidism, unspecified Status: Chronic Assessment & Plan: continue levothyroxine Qualifiers: Qualified Codes: E03.9 - Hypothyroidism, unspecified (5) Cholelithiasis Status: Chronic Clinical Quality Measures DVT/VTE Risk/Contraindication: Risk Factor Score Per Nursin RFS Level Per Nursing on Admit: 2=Moderate MAIK BOWMAN MD Nov 01, 2019 10:19
--- NOTE | 2019-11-01 10:40 | Progress Note - Surgery ---
Subjective Time Seen by a Provider: 09:58 Subjective/Events-last exam Pt seen and examined is doing much better today, no more RUQ pain. Pt is being sent home. Review of Systems General: No Chills, No Night Sweats Pulmonary: No Dyspnea, No Cough Cardiovascular: No: Chest Pain, Palpitations Gastrointestinal: No: Nausea, Vomiting Objective Exam Vital Signs Date Time Temp Pulse Resp B/P (MAP) Pulse Ox O2 Delivery O2 Flow Rate FiO2 11/01/19 07:41 37.2 80 18 130/77 (94) 96 Room Air 11/01/19 03:55 36.5 81 20 131/73 (92) 99 Room Air 11/01/19 00:03 36.6 82 15 134/75 (94) 96 Room Air 10/31/19 20:00 Room Air 10/31/19 19:21 36.4 92 17 142/80 (100) 96 Room Air 10/31/19 16:55 37.0 88 15 168/84 (112) 97 Room Air 10/31/19 13:30 76 18 100 Room Air 10/31/19 13:25 80 18 100 OxyMask 4 10/31/19 13:20 87 18 99 OxyMask 6 10/31/19 12:11 36.8 76 20 161/97 (118) 96 Room Air I & O 11/01/19 07:00 Intake Total 3670 ml Balance 3670 ml Capillary Refill : Less Than 3 SecondsLess Than 3 Seconds General Appearance: No Apparent Distress, WD/WN HEENT: PERRL/EOMI, Moist Mucous Membranes Neck: Supple Respiratory: Chest Non Tender, Lungs Clear, Normal Breath Sounds Cardiovascular: Regular Rate, Rhythm, No Murmur Gastrointestinal: non tender, soft, no organomegaly Extremity: Non Tender, No Calf Tenderness, No Pedal Edema Neurologic/Psychiatric: Alert, Oriented x3, Normal Mood/Affect Skin: Warm/Dry Results Lab Microbiology 10/31/19 MRSA Screen - Final, Complete MRSA not isolated Assessment/Plan Assessment/Plan Assessment/Plan Gastritis seen on EGD Cholelithiasis/Cholecystitis - Chronic Plan is to send her home, acid blockers (PPI and Carafate). Follow up as an outpt for discussion about timing of Cholecystectomy. We did discuss this in light of COVID-19, etc and she will call the office. Clinical Quality Measures DVT/VTE Risk/Contraindication: Risk Factor Score Per Nursin RFS Level Per Nursing on Admit: 2=Moderate MANJINDER MCCONNELL DO Nov 01, 2019 10:40
[2019-11-01 11:15] VITALS: BP 130/77
== END 2019-11-01 11:15 | disposition home or self-care (01) ==
LOC: 4TH 14:27
PROVIDERS: ADMIT Family Medicine; ATTEND Family Medicine
DX: K29.70 Gastritis, unspecified, without bleeding (principal); I10 Essential (primary) hypertension; E03.9 Hypothyroidism, unspecified; K80.10 Calculus of gallbladder with chronic cholecystitis without obstruction; K21.9 Gastro-esophageal reflux disease without esophagitis; E66.9 Obesity, unspecified; Z68.36 Body mass index [BMI] 36.0-36.9, adult; Z79.899 Other long term (current) drug therapy; Z11.2 Encounter for screening for other bacterial diseases
CPT/HCPCS: 36415; 76705; 80053; 82150; 83690; 85007; 85025; 85027; 87081; 88305; 99211; G0378

== ENCOUNTER → 2020-04-12 | Outpatient (CLI) | payer BC ==
[~2020-04-12] MED LIST: AMIT25TA9 PO; AMLO5TAB9 PO; FAMO40TA6 PO; FLUT9.9S NS; HYDR-4226 PO; HYDR25TA4 PO; LEVO100T7 PO; LOTE5DRO3 OP; NORG1TAB16 PO; ONDA-105 PO; PANT40TA3 PO; SUCR1TAB PO
--- NOTE | 2020-04-12 09:29 | Diagnostic Imaging Report ---
[place] Bilateral mammograms. CLINICAL INDICATION: Screening. Comparison made with prior examination 12/23/2018, 09/06/2017 and 07/13/2016. FINDINGS: There are scattered fibroglandular densities bilaterally. There is no dominant mass, spiculated lesions or suspicious calcifications. Skin, nipples and axillae are unremarkable. IMPRESSION: Category 2 benign ACR BI-RADS Category 2: Benign findings. Result letter will be mailed to the patient. Note: At least 10% of breast cancer is not imaged by mammography. Dictated by: Dictated on workstation # [id number]
== END ==
LOC: RAD 07:42
PROVIDERS: ATTEND Surgery
DX: Z12.31 Encounter for screening mammogram for malignant neoplasm of breast (principal)
CPT/HCPCS: 77063; 77067

== ENCOUNTER 2020-10-22 05:29 | Outpatient (RCR) | payer BC ==
[~2020-10-22] VITALS: Ht 165.1 cm; Wt 90.8 kg
[~2020-10-22 05:29] MED LIST changes: +AMLO-250 PO; -AMLO5TAB9 PO; +LEVO50TA6 PO; -PANT40TA3 PO; +PANT40TA52 PO
== END 2020-10-22 09:34 | disposition home or self-care (01) ==
LOC: PREOP 05:29
PROVIDERS: ATTEND Surgery
DX: Z01.812 Encounter for preprocedural laboratory examination (principal); D64.9 Anemia, unspecified; K21.9 Gastro-esophageal reflux disease without esophagitis; Z20.822 Contact with and (suspected) exposure to COVID-19
CPT/HCPCS: 87635

== ENCOUNTER 2020-10-26 08:30 | Day surgery (SDC) | payer BC ==
[~2020-10-26] VITALS: Ht 165 cm; Wt 91.0 kg
[2020-10-26] MEDS ORDERED: LACTATED RINGERS 1,000 ML IV ONE (08:31)
[2020-10-26] MEDS ORDERED: LACTATED RINGERS 1,000 ML IV STA (08:33)
[2020-10-26] MEDS ORDERED: HURRICAINE EXT TUBE (BENZOCAINE) XX PRN (08:45)
[2020-10-26 08:55] VITALS: BP 134/84
[2020-10-26] MEDS ORDERED: PROPOFOL INJECTION 50 ML IV ONE (09:55)
[2020-10-26] MEDS ORDERED: MIDAZOLAM 2 MG/2 ML (VERSED) VIAL ONE (09:55)
--- NOTE | 2020-10-26 10:11 | Progress Note-Pre Operative ---
Pre-Operative Progress Note H&P Reviewed The H&P was reviewed, patient examined and no changes noted. Date Seen by Provider: Oct 26, 2020 Time Seen by Provider: 10:11 Date H&P Reviewed: Oct 26, 2020 Time H&P Reviewed: 10:11 Pre-Operative Diagnosis: gerd anemia rlq abd pain DAVIDA ARRIOLA DO Oct 26, 2020 10:11
[2020-10-26] MEDS ORDERED: HURRICAINE EXT TUBE (BENZOCAINE) ONE (10:16)
[2020-10-26] MEDS ORDERED: KETAMINE/NaCl 50 MG/5 ML SYRINGE (ED ONLY) ONE (10:20)
[2020-10-26 11:00] VITALS: BP 127/76
--- NOTE | 2020-10-26 11:03 | Progress Note-Post Operative ---
Post-Operative Progess Note Surgeon (s)/Pin Maker (s) Surgeon DAVIDA ARRIOLA DO Pin Maker: na Pre-Operative Diagnosis gerd anemia rlq abd pain Post-Operative Diagnosis normal egd, colon polyp x 2 Procedure & Operative Findings Date of Procedure 10/26/20 Procedure Performed/Findings egd c biopsy, colonoscopy c hot bx polypectomy x 2 Anesthesia Type per gericare aide teacher Estimated Blood Loss Estimated blood loss (mL): none Specimens/Packing Specimens Removed antrum, colon polyps DAVIDA ARRIOLA DO Oct 26, 2020 11:03
[2020-10-26 11:05] VITALS: BP_SYST 123; BP_SYST 125; BP_DIAS 77; BP_DIAS 81
--- NOTE | 2020-10-26 11:05 | Discharge Inst-Simple/Standard ---
Discharge Inst-Standard Patient Instructions/Follow Up Plan of Care/Instructions/FU: 2-3 weeks Adarsh Activity as Tolerated: Yes Discharge Diet: Regular Diet DAVIDA ARRIOLA DO Oct 26, 2020 11:05
[2020-10-26 11:35] VITALS: BP 129/97
[2020-10-26 11:38] VITALS: BP 129/97
--- NOTE | 2020-10-26 12:02 | Anesthesia-General Post-Op ---
MAC Patient Condition Mental Status/LOC: Same as Preop Cardiovascular: Satisfactory Nausea/Vomiting: Absent Respiratory: Satisfactory Pain: Controlled Complications: Absent Post Op Complications Complications None Follow Up Care/Instructions Patient Instructions None needed. Anesthesiology Discharge Order Discharge Order Patient is doing well, no complaints, stable vital signs, no apparent adverse anesthesia problems. No complications reported per nursing. BRITTANI SERRA CRNA Oct 26, 2020 12:02
--- NOTE | 2020-10-26 12:07 | OPERATIVE REPORT ---
DATE OF SERVICE: 10/26/2020 PREOPERATIVE DIAGNOSES: Gastroesophageal reflux disease, anemia, and right lower quadrant abdominal pain. POSTOPERATIVE DIAGNOSIS: Normal esophagogastroduodenoscopy and colonoscopy with colon polyps x2. PROCEDURES PERFORMED: EGD with biopsy, colonoscopy with hot biopsy polypectomy x2. SURGEON: Davida Altamirano DO ANESTHESIA: Per FABRIC WORKER. ESTIMATED BLOOD LOSS: None. COMPLICATIONS: None. INDICATIONS FOR PROCEDURE: The patient is a 50-year-old female with GERD symptoms with anemia and right lower quadrant abdominal pain. She was on Protonix. She is doing well. She was recommended to have EGD and colonoscopy for further evaluation. She understands the risks and benefits and wished to proceed with procedure. Consent was signed in the chart. DESCRIPTION OF PROCEDURE: The patient was taken to the endoscopy suite and placed in a left lateral recumbent position. Timeout was performed. Scope was inserted in the mouth, down the esophagus, stomach and into the duodenum without difficulty. There were no polyps, masses or ulcerations within the duodenum. Scope was slowly retracted back into the stomach, where it was further insufflated. No polyps, masses or ulcerations. Biopsy of the antrum was obtained. Scope was then slowly retracted back and retroflexed. No other pathology noted. Scope was returned to its normal position, slowly withdrawn to the distal esophagus. No polyps, masses or ulcerations. Scope was then slowly retracted back until completely removed. Digital rectal exam was performed. There were no palpable polyps, masses or ulcerations. Scope was inserted in the rectum, advanced all the way to cecum with minimal difficulty. Prep was adequate. Scope was then slowly retracted back. There were no polyps, masses or ulcerations within the cecum. In the ascending colon, small polyp was present, which hot biopsy polypectomy was performed. Scope was then continuously retracted back. No polyps, masses or ulcerations within the remainder of the ascending, transverse, descending colon. In the sigmoid colon, a small polyp was present, which hot biopsy polypectomy was performed. Scope was then slowly retracted back in the rectum. It was also retroflexed noting no other pathology. Scope was returned to its normal position, slowly withdrawn until completely removed. The patient tolerated the procedure well without any complications and taken to the recovery room in a stable condition. RECOMMENDATIONS: The patient will need repeat colonoscopy in five years. Any issues before that be seen at that time. The patient will follow up on pathology. If she continues to be anemic, we will consider capsule endoscopy. Job ID: [id number] DocumentID: [id number] Dictated Date: 10/26/2020 11:08:43 Can Bander Operator Date: 10/26/2020 12:06:44 Dictated By: DAVIDA ALTAMIRANO DO
== END 2020-10-26 11:40 | disposition home or self-care (01) ==
LOC: ENDO 08:30
PROVIDERS: ATTEND Surgery
DX: D12.2 Benign neoplasm of ascending colon (principal); D12.5 Benign neoplasm of sigmoid colon; K21.9 Gastro-esophageal reflux disease without esophagitis; D50.9 Iron deficiency anemia, unspecified; I10 Essential (primary) hypertension; E03.9 Hypothyroidism, unspecified; E66.9 Obesity, unspecified; Z68.33 Body mass index [BMI] 33.0-33.9, adult; M99.01 Segmental and somatic dysfunction of cervical region; M99.02 Segmental and somatic dysfunction of thoracic region; M99.03 Segmental and somatic dysfunction of lumbar region; M99.04 Segmental and somatic dysfunction of sacral region; Z79.899 Other long term (current) drug therapy
CPT/HCPCS: 84703; 88305

== ENCOUNTER → 2021-04-25 | Outpatient (CLI) | payer BC ==
--- NOTE | 2021-04-25 11:00 | Diagnostic Imaging Report ---
INDICATION: Routine screening. COMPARISON: 04/12/2020 and 12/23/2018. TECHNIQUE: 2D and 3D bilateral screening mammography was performed with CAD. FINDINGS: Scattered fibroglandular densities are identified bilaterally. An intraparenchymal lymph node in the outer right breast is stable. No new mass or malignant-appearing microcalcifications are seen. The axillae are unremarkable. IMPRESSION: No mammographic features suspicious for malignancy are identified. ACR BI-RADS Category 2: Benign findings. Result letter will be mailed to the patient. Note: At least 10% of breast cancer is not imaged by mammography. Dictated by: Dictated on workstation # [id number]
== END ==
LOC: RAD 07:45
PROVIDERS: ATTEND Surgery
DX: Z12.31 Encounter for screening mammogram for malignant neoplasm of breast (principal)
CPT/HCPCS: 77063; 77067

== ENCOUNTER 2021-07-26 06:39 | Outpatient (CLI) | payer BC ==
[~2021-07-26] VITALS: Ht 165.1 cm; Wt 94.8 kg
== END 2021-07-26 18:27 | disposition home or self-care (01) ==
LOC: PREOP 06:39
PROVIDERS: ATTEND Surgery
DX: Z01.818 Encounter for other preprocedural examination (principal)

== ENCOUNTER 2021-07-28 08:28 | Day surgery (SDC) | payer BC ==
[~2021-07-28] VITALS: Ht 165 cm; Wt 95.4 kg
[2021-07-28] VITALS (10 sets, daily range): BP systolic 119–149; BP diastolic 65–98
[2021-07-28] MEDS ORDERED: ceFAZolin 2 GM IV Premixed 50 ML IV ONE (08:45)
[2021-07-28] MEDS ORDERED: LACTATED RINGERS 1,000 ML IV PRN (08:45)
[2021-07-28] MEDS ORDERED: SPIR25TA5 PO (09:09)
--- NOTE | 2021-07-28 09:21 | Progress Note-Pre Operative ---
Pre-Operative Progress Note H&P Reviewed The H&P was reviewed, patient examined and no changes noted. Date Seen by Provider: Jul 28, 2021 Time Seen by Provider: 09:21 Date H&P Reviewed: Jul 28, 2021 Time H&P Reviewed: :21 Pre-Operative Diagnosis: symptomatic cholelithiasis. DAVIDA ARRIOLA DO Jul 28, 2021 09:21
[2021-07-28] MEDS ORDERED: LIDOCAINE PF 2% 5 ML (XYLOCAINE) VIAL ONE (09:24)
[2021-07-28] MEDS ORDERED: proPOfol 200 MG/20 ML (DIPRIVAN) VIAL IV ONE (09:24)
[2021-07-28] MEDS ORDERED: ONDANSETRON 4 MG/2 ML (SDV) Z0FRAN ONE (09:24)
[2021-07-28] MEDS ORDERED: fentaNYL INJ 100 MCG/2 ML AMP ONE ×2 (09:24→12:27)
[2021-07-28] MEDS ORDERED: SEVOFLURANE (ULTANE) 15 ML INHAL SOLN ONE (09:24)
[2021-07-28] MEDS ORDERED: MIDAZOLAM 2 MG/2 ML (VERSED) VIAL ONE (09:25)
[2021-07-28] MEDS ORDERED: LIDOCAINE/EPI 1%-1:200,000 (XYLOCAINE) 30 ML VIAL ONE (09:36)
[2021-07-28] MEDS ORDERED: NEOSTIGMINE 3 MG/3 ML VIAL ONE (11:22)
[2021-07-28] MEDS ORDERED: GLYCOPYRROLATE 0.2 MG/ML (ROBINUL) 2 ML VIAL ONE (11:22)
[2021-07-28] MEDS ORDERED: ROCURONIUM 50 MG/5 ML (ZEMURON) VIAL IV ONE (11:34)
[2021-07-28] MEDS ORDERED: morphine INJ 10 MG/ML 1ML (SYR OR VIAL) ONE (11:47)
[2021-07-28] MEDS ORDERED: DOCU-143 PO (11:58)
[2021-07-28] MEDS ORDERED: ACHD5005 PO (11:58)
--- NOTE | 2021-07-28 11:59 | Discharge Inst-Simple/Standard ---
Discharge Inst-Standard Discharge Medications New, Converted or Re-Newed RX: Transmitted to Pharmacy Patient Instructions/Follow Up Plan of Care/Instructions/FU: 2-3 weeks Adarsh Activity as Tolerated: No Discharge Diet: Regular Diet Other Inst to Patient Follow up Appt: Make appointment for 2-3 weeks. Instructions: No lifting greater than 10 pounds. No strenuous activity. May shower in 24 hours, no tub bath or soaking. Use incentive spirometer at home as directed. No Smoking Skin/Wound Care: You have special glue over incision, it will fall off on it's own. Symptoms to Report: Appetite Changes, Extremity Discoloration, Numbness/Tingling, Swelling Increased, Bleeding Excessive, Eyesight Changes, Pain Increased, Urine Color Change, Constipation(Persistent), Fever over 101 degree F, Pain/Pressure in chest, Urinating Difficulty, Cough Up/Vomit Blood, Heart Beat Irreg/Pounding, Pain/Pressure in jaw, Vaginal Bleeding Increase, Cramps in feet or legs, Lightheadedness, Pain/Pressure in shoulder, Diarrhea(Persistent), Memory Changes Suddenly, Questions/Concerns, Weight gain consecutive days, Dizziness/Fainting, Nausea/Vomiting, Shortness of Breath, Weight gain over 2 pounds. If eyes or skin turn yellow notify physician. If questions or concerns contact your physician Or seek help at emergency department. DAVIDA ARRIOLA DO Jul 28, 2021 11:59
--- NOTE | 2021-07-28 12:02 | Progress Note-Post Operative ---
Post-Operative Progess Note Surgeon (s)/Trial Attorney (s) Surgeon DAVIDA ARRIOLA DO Trial Attorney: Dr. Winslow to assist in retraction dissection and closure. Pre-Operative Diagnosis symptomatic cholelithiasis. Post-Operative Diagnosis same Procedure & Operative Findings Date of Procedure 07/28/21 Procedure Performed/Findings PROCEDURE: Laparoscopic cholecystectomy with intraoperative cholangiogram. COMPLICATIONS: None. PROCEDURE: The patient was taken to the operating suite and was prepped and draped in sterile fashion. A surgical pause was performed. Just superior to the umbilicus, a 12 mm incision was made. Dissection was taken down to the fascia, which was then scored and grasped with a Saul and the abdomen was then entered. A 0 Vicryl suture was placed in a dhercb-[id number] fashion and a Tarango trocar was placed and secured. Pneumoperitoneum was achieved. A 5mm trochar place in the subxyphoid and 2 in the right upper quadrant. The gallbladder was then grasped and elevated. The cystic duct, and cystic artery were then dissected out. Clips were placed along the proximal and distal portion of the cystic artery which was then transected. Clip was placed on the distal portion of the cystic duct which was then partially transected. An arrow catheter was inserted into the duct. The cholangiogram was then performed. No filing defects and contrast made its way into the duodenum. Catheter removed. Clips were placed on proximal portion of the cystic duct and then the duct was then transected. Hookcautery was used to dissect the gallbladder from the gallbladder fossa achieving hemostasis. The gallbladder was placed in an Endobag and removed through the 12 mm trocar site. The abdomen was then reinspected. Copious amounts of irrigation were used to irrigate the abdomen and there were no signs of active bleeding. Hemostasis had been achieved. The 12 mm fascial defect was then closed with 0 Vicryl suture that had been placed in a [id number] fashion. The abdomen was then desufflated, the trocars were removed. The abdomen was then washed and dried. The skin was then closed using 4-0 Monocryl in a subcuticular fashion. The abdomen was washed and dried and Skin Affix was place over incisions. Patient tolerated the procedure well without any complications and was taken to the recovery room in stable condition. Anesthesia Type general Estimated Blood Loss Estimated blood loss (mL): minimal Specimens/Packing Specimens Removed gallbladder DAVIDA ARRIOLA DO Jul 28, 2021 12:02
--- NOTE | 2021-07-28 12:13 | Anesthesia-General Post-Op ---
General Patient Condition Mental Status/LOC: Same as Preop Cardiovascular: Satisfactory Nausea/Vomiting: Absent Respiratory: Satisfactory Pain: Controlled Complications: Absent Post Op Complications Complications None Follow Up Care/Instructions Patient Instructions None needed. Anesthesia/Patient Condition Patient Condition Patient is doing well, no complaints, stable vital signs, no apparent adverse anesthesia problems. No complications reported per nursing. BRITTANI SERRA CRNA Jul 28, 2021 12:13
[2021-07-28] MEDS ORDERED: morphine INJ 10 MG/ML 1ML (SYR OR VIAL) IVP ONE (12:15)
[2021-07-28] MEDS ORDERED: ONDANSETRON 4 MG/2 ML (SDV) Z0FRAN IVP PRN (12:15)
[2021-07-28] MEDS ORDERED: fentaNYL INJ 100 MCG/2 ML AMP IVP ONE (12:15)
[2021-07-28] MEDS ORDERED: MEPERIDINE (DEMEROL) INJ 50 MG/ML IVP ONE (12:15)
--- NOTE | 2021-07-28 12:26 | Diagnostic Imaging Report ---
Indication: Fluoroscopy for intraoperative cholangiogram. Fluoroscopy was provided in the OR during intraoperative cholangiogram. 8 seconds of fluoroscopic time was utilized. Images demonstrate contrast being injected via the cystic duct remnant. 35 images were obtained. Intrahepatic and extrahepatic bile ducts are opacified and appear to be normal caliber. There is free flow of contrast into the duodenum. No filling defects are seen to suggest retained stone. IMPRESSION: Fluoroscopy during intraoperative cholangiogram. Dictated by: Dictated on workstation # [id number]
[2021-07-28] MEDS ORDERED: HYDROcodone/APAP 5 MG/325 MG (LORTAB) TAB ONE (13:38)
[2021-07-28] MEDS ORDERED: HYDROcodone/APAP 5 MG/325 MG (LORTAB) TAB PO ONE (13:45)
== END 2021-07-28 14:10 ==
LOC: SDC 08:28
PROVIDERS: ATTEND Surgery
DX: K80.10 Calculus of gallbladder with chronic cholecystitis without obstruction (principal); I10 Essential (primary) hypertension; E66.9 Obesity, unspecified; K21.9 Gastro-esophageal reflux disease without esophagitis; E07.9 Disorder of thyroid, unspecified; M99.04 Segmental and somatic dysfunction of sacral region; M99.03 Segmental and somatic dysfunction of lumbar region; M99.01 Segmental and somatic dysfunction of cervical region; M99.08 Segmental and somatic dysfunction of rib cage; Z79.899 Other long term (current) drug therapy; Z79.890 Hormone replacement therapy; Z68.35 Body mass index [BMI] 35.0-35.9, adult
CPT/HCPCS: 76000; 84703; 87081; 88304

== ENCOUNTER → 2022-05-01 | Outpatient (CLI) | payer BC ==
[~2022-05-01] MED LIST changes: +ACHD5005 PO; +DOCU-143 PO; +SPIR25TA5 PO
--- NOTE | 2022-05-01 11:45 | Diagnostic Imaging Report ---
INDICATION: Routine screening. Comparison is made with prior mammogram from 04/25/2021 and 04/12/2020. 2-D and 3-D bilateral screening mammography was performed with CAD. Scattered fibroglandular densities are identified bilaterally. The parenchymal pattern is stable. Intraparenchymal lymph node in the right breast is stable. No new mass or malignant-appearing microcalcifications are seen. Axillae are unremarkable. IMPRESSION: No mammographic features suspicious for malignancy are identified. ACR BI-RADS Category 2: Benign findings. Result letter will be mailed to the patient. Note: At least 10% of breast cancer is not imaged by mammography. BI-RADS Category 2 Dictated by: Dictated on workstation # [id number]
== END ==
LOC: RAD 07:30
PROVIDERS: ATTEND Surgery
DX: Z12.31 Encounter for screening mammogram for malignant neoplasm of breast (principal)
CPT/HCPCS: 77063; 77067

== ENCOUNTER → 2022-12-15 | Outpatient (CLI) | payer BC ==
[~2022-12-15] VITALS: Ht 165 cm; Wt 100.0 kg
[~2022-12-15] MED LIST changes: +FERRIC CARBOXYMALTOSE INJ 750 MG in NS (IVPB) 250 ML IV SCH
[2022-12-15 14:17] VITALS: BP 141/92
== END ==
LOC: SDC 13:51
PROVIDERS: ATTEND Family Medicine
DX: D50.9 Iron deficiency anemia, unspecified (principal)
CPT/HCPCS: 96365

== ENCOUNTER → 2023-02-20 | Outpatient (CLI) | payer BC ==
[~2023-02-20] MED LIST changes: -FERRIC CARBOXYMALTOSE INJ 750 MG in NS (IVPB) 250 ML IV SCH
[2023-02-20 10:38] LABS: BASOPHILS # (AUTO) 0.1 10^3/uL (0.0-0.1); BASOPHILS % (AUTO) 1 % (0-10); EOSINOPHILS # (AUTO) 0.3 10^3/uL (0.0-0.3); EOSINOPHILS % (AUTO) 3 % (0-10); HEMATOCRIT 46 % (35-52); HEMOGLOBIN 15.4 g/dL (11.5-16.0); LYMPHOCYTES # (AUTO) 1.5 10^3/uL (1.0-4.0); LYMPHOCYTES % (AUTO) 17 % (12-44); MEAN CORPUSCULAR HEMOGLOBIN 28 pg (25-34); MEAN CORPUSCULAR HGB CONC 33 g/dL (32-36); MEAN CORPUSCULAR VOLUME 83 fL (80-99); MEAN PLATELET VOLUME 11.3 fL (9.0-12.2); MONOCYTES # (AUTO) 0.8 10^3/uL (0.0-1.0); MONOCYTES % (AUTO) 9 % (0-12); NEUTROPHILS # (AUTO) 6.5 10^3/uL (1.8-7.8); NEUTROPHILS % (AUTO) 71 % (42-75); PLATELET COUNT 204 10^3/uL (130-400); WHITE BLOOD COUNT 9.2 10^3/uL (4.3-11.0)
[2023-02-20 10:39] LABS: BILIRUBIN,URINE NEGATIVE (NEGATIVE); CLARITY,URINE CLEAR; COLOR,URINE YELLOW; GLUCOSE, URINE (UA) NEGATIVE (NEGATIVE); KETONES,URINE NEGATIVE (NEGATIVE); LEUKOCYTE ESTERASE ,URINE TRACE (NEGATIVE); NITRITE,URINE NEGATIVE (NEGATIVE); PH,URINE 5.5 (5-9); PROTEIN,URINE NEGATIVE (NEGATIVE)
[2023-02-20 10:48] LABS: BACTERIA,URINE LARGE /HPF; RBC,URINE 0-2 /HPF
[2023-02-20 11:03] LABS: BAND NEUTROPHILS 0 %; BASOPHILS % (MANUAL) 0 %; EOSINOPHILS % (MANUAL) 4 %; LYMPHOCYTES % (MANUAL) 15 %; MONOCYTES % (MANUAL) 8 %; NEUTROPHILS % (MANUAL) 73 %
[2023-02-20 11:04] LABS: ANISOCYTOSIS MODERATE
[2023-02-20 11:13] LABS: ERYTHROCYTE SEDIMENTATION RATE 12 MM/HR (0-30)
== END ==
LOC: LAB 10:14
PROVIDERS: ATTEND Nurse Practitioner Family
DX: R10.31 Right lower quadrant pain (principal)
CPT/HCPCS: 36415; 81000; 85007; 85027; 85652; 87088

== ENCOUNTER → 2023-07-16 | Outpatient (CLI) | payer BC ==
--- NOTE | 2023-07-16 15:03 | Diagnostic Imaging Report ---
EXAMINATION: 3D bilateral screening mammogram with CAD. INDICATION: Screening. COMPARISON: This study was compared to the prior exams of 05/01/2022 and 04/25/2021. PERSONAL HISTORY: At this time, there are no current complaints. FINDINGS: The breasts are almost entirely fatty. There has been no significant change when compared to the prior exam.. There is no primary or secondary sign of malignancy noted. IMPRESSION: There is no radiographic evidence for malignancy. ACR BI-RADS Category 1: Negative. Result letter will be mailed to the patient. Note: At least 10% of breast cancer is not imaged by mammography. Dictated by: Dictated on workstation # [id number]
== END ==
LOC: RAD 07:45
PROVIDERS: ATTEND Family Medicine
DX: Z12.31 Encounter for screening mammogram for malignant neoplasm of breast (principal)
CPT/HCPCS: 77063; 77067